=== PATIENT | male | born 1955 | race African-American/Black ===

== ENCOUNTER 2018-11-14 09:40 | Emergency (ER) | payer OTHER ==
[~2018-11-14] VITALS: Ht 180.3 cm; Wt 108.9 kg
[~2018-11-14 09:40] MED LIST: FLEXERIL PO; LISINOPRIL-HCT1 EAC2 PO; MEDROLDOSEPACK PO; NAPROSYN500 MG PO
[2018-11-14] MEDS ORDERED: NORFLEX100 MG PO (11:24)
[2018-11-14] MEDS ORDERED: MOBIC7.5 MG PO (11:24)
[2018-11-14 11:37] VITALS: BP 123/69
== END 2018-11-14 11:38 | disposition home or self-care (01) ==
LOC: ER 09:40
DX: S16.1XXA Strain of muscle, fascia and tendon at neck level, initial encounter (principal); S39.012A Strain of muscle, fascia and tendon of lower back, initial encounter; S29.012A Strain of muscle and tendon of back wall of thorax, initial encounter; I10 Essential (primary) hypertension; W00.0XXA Fall on same level due to ice and snow, initial encounter; Y93.89 Activity, other specified; Y92.89 Other specified places as the place of occurrence of the external cause; Y99.8 Other external cause status

== ENCOUNTER 2020-06-12 08:11 | Emergency (ER) | payer OTHER ==
[~2020-06-12] VITALS: Ht 180.3 cm; Wt 108.9 kg
[~2020-06-12 08:11] MED LIST changes: +MOBIC7.5 MG PO; +NORFLEX100 MG PO
[2020-06-12] MEDS ORDERED: NORCO 5-325 TA1 EAC2 PO (09:42)
[2020-06-12 10:22] VITALS: BP 112/73
== END 2020-06-12 10:22 | disposition home or self-care (01) ==
LOC: ER 08:11
DX: M54.5 Low back pain (principal); I10 Essential (primary) hypertension; Z79.899 Other long term (current) drug therapy; V49.9XXA Car occupant (driver) (passenger) injured in unspecified traffic accident, initial encounter; Y93.89 Activity, other specified; Y92.89 Other specified places as the place of occurrence of the external cause; Y99.8 Other external cause status

== ENCOUNTER 2020-12-06 08:14 | Emergency (ER) | payer OTHER ==
[~2020-12-06] VITALS: Ht 180.3 cm; Wt 108.9 kg
[~2020-12-06 08:14] MED LIST changes: +NORCO 5-325 TA1 EAC2 PO
[2020-12-06 12:03] VITALS: BP 116/79
== END 2020-12-06 12:07 | disposition home or self-care (01) ==
LOC: ER 08:14
DX: S46.811A Strain of other muscles, fascia and tendons at shoulder and upper arm level, right arm, initial encounter (principal); S30.0XXA Contusion of lower back and pelvis, initial encounter; S20.224A Contusion of middle back wall of thorax, initial encounter; I10 Essential (primary) hypertension; Z79.899 Other long term (current) drug therapy; W01.0XXA Fall on same level from slipping, tripping and stumbling without subsequent striking against object, initial encounter; Y93.89 Activity, other specified; Y92.89 Other specified places as the place of occurrence of the external cause; Y99.8 Other external cause status